=== PATIENT | female | born 1945 | race Caucasian/White ===

== ENCOUNTER 2017-04-24 10:03 | Emergency (ER) | payer MEDICARE, MEDICAID ==
[~2017-04-24] VITALS: Ht 160 cm; Wt 50.0 kg
[2017-04-24] MEDS ORDERED: OXYCODONE HCL/ACETAMINOPHEN 5/325MG TABLET PO ONE (10:30)
[2017-04-24] MEDS ORDERED: KETOROLAC 30MG/ML VIAL IV ONE (10:30)
[2017-04-24 10:49] LABS: BASOPHILS % 0.3 % (0.0-2.0); EOSINOPHILS % 0.1 % (0.0-5.0); HEMATOCRIT. 38.5 % (36.0-48.0); HEMOGLOBIN. 12.7 g/dL (12.0-16.0); LYMPHOCYTES % 12.2 % (20.0-50.0); MEAN CORPUSCULAR HEMOGLOBIN 28.6 pg (28.0-32.0); MEAN CORPUSCULAR VOLUME 86.4 fL (81.0-99.0); MEAN PLATELET VOLUME 8.6 fl (7.4-10.4); MONOCYTES % 8.5 % (2.0-8.0); NEUTROPHILS % 78.9 % (40.0-76.0); PLATELET 378 x1000/uL (130-400); RED BLOOD CELL COUNT 4.45 mill/uL (4.2-5.4); RED CELL DISTRIBUTION WIDTH 14.6 % (11.6-14.6)
[2017-04-24 10:57] LABS: INR 1.1; PARTIAL THROMBOPLASTIN TIME 33.9 sec (23.4-31.0); PROTHROMBIN TIME 11.3 sec (9.4-11.6)
[2017-04-24 10:59] LABS: CHLORIDE 98 mEq/L (98-107)
[2017-04-24 11:05] LABS: TROPONIN I < 0.02 ng/mL (0.00-0.04)
[2017-04-24 11:21] LABS: CLARITY URINE CLEAR (CLEAR); COLOR URINE DARK YELLOW (YELLOW); KETONES URINE TRACE (NEGATIVE); LEUKOCYTE ESTERASE URINE NEGATIVE (NEGATIVE); NITRITE URINE NEGATIVE (NEGATIVE); OCCULT BLOOD URINE TRACE (NEGATIVE); PROTEIN URINE 1+ (NEGATIVE); SPECIFIC GRAVITY URINE 1.029 (1.005-1.030)
[2017-04-24 12:54] VITALS: BP 112/66
== END 2017-04-24 13:15 | disposition home or self-care (01) ==
LOC: ER 10:11
DX: M50.221 Other cervical disc displacement at C4-C5 level (principal); I10 Essential (primary) hypertension; M19.90 Unspecified osteoarthritis, unspecified site; R51 Headache; Z87.11 Personal history of peptic ulcer disease
CPT/HCPCS: 36415; 71045; 72125; 80053; 81003; 83690; 83880; 84484; 85025; 85610; 85730; 93005; 96374; 99285; J1885